=== PATIENT | male | born 1975 | race Hispanic/Latino ===

== ENCOUNTER 2020-06-16 00:15 | Emergency (ER) | payer OTHER ==
[2020-06-16] MEDS ORDERED: METHYLPREDNISOLONE SOD SUCC 40MG/ML 1ML ONE (01:10)
== END 2020-06-16 02:25 | disposition home or self-care (01) ==
LOC: EDH 00:15
DX: T78.49XA Other allergy, initial encounter (principal); L50.8 Other urticaria; L50.9 Urticaria, unspecified; R42 Dizziness and giddiness; X58.XXXA Exposure to other specified factors, initial encounter
CPT/HCPCS: 96374; 99283; J2920